=== PATIENT | male | born 1985 | race American Indian/Alaskan Native ===

== ENCOUNTER 2019-12-04 19:00 | Emergency (ER) | payer MEDICARE ==
[~2019-12-04] VITALS: Ht 177.8 cm; Wt 79.0 kg
[~2019-12-04 19:00] MED LIST: ARIP10TA15 PO; BAC15O TP; TEG100T PO; VENL25TA48 PO
[2019-12-04 19:02] VITALS: BP 113/74
[2019-12-04] MEDS ORDERED: azithromycin 250mg tablet PO ONE (19:35)
[2019-12-04] MEDS ORDERED: CefTRIAXone 250MG IM Kit w/LIDOcaine IM ONE (19:35)
[2019-12-04] MEDS ORDERED: ACYC-202 PO (19:35)
--- NOTE | 2019-12-04 20:15 | NUR ---
pt refused to treat or take anything until the dx was confirmed.
== END 2019-12-04 20:56 | disposition home or self-care (01) ==
LOC: ER 19:01
DX: Z20.2 Contact with and (suspected) exposure to infections with a predominantly sexual mode of transmission (principal); G89.29 Other chronic pain; F31.9 Bipolar disorder, unspecified; F12.90 Cannabis use, unspecified, uncomplicated; Z59.0 Homelessness; Z60.2 Problems related to living alone; Z79.899 Other long term (current) drug therapy
CPT/HCPCS: 36415; 87252; 87491; 99283

== ENCOUNTER 2019-12-15 17:36 | Emergency (ER) | payer OTHER ==
[~2019-12-15] VITALS: Ht 177.8 cm; Wt 77.7 kg
[2019-12-15] MEDS ORDERED: ONDA8TAB6 PO (18:22)
[2019-12-15] MEDS ORDERED: DOXY100C76 PO (18:22)
[2019-12-15] MEDS ORDERED: KETO15CR2 TOP (18:22)
[2019-12-15 19:03] VITALS: BP 116/74
== END 2019-12-15 19:00 | disposition home or self-care (01) ==
LOC: ER 17:37
DX: B07.9 Viral wart, unspecified (principal); L03.314 Cellulitis of groin; N49.9 Inflammatory disorder of unspecified male genital organ; G89.29 Other chronic pain; F31.9 Bipolar disorder, unspecified; F12.90 Cannabis use, unspecified, uncomplicated; Z98.890 Other specified postprocedural states; Z59.0 Homelessness; Z79.899 Other long term (current) drug therapy
CPT/HCPCS: 99283

== ENCOUNTER 2020-06-20 10:55 | Emergency (ER) | payer MEDICARE ==
[~2020-06-20] VITALS: Ht 177.8 cm; Wt 81.8 kg
[~2020-06-20 10:55] MED LIST changes: +KETO15CR2 TOP; +ONDA8TAB6 PO
[2020-06-20] MEDS ORDERED: ondansetron 4mg rapidly disintigrating tab PO ONE (11:15)
[2020-06-20] MEDS ORDERED: naloxone 2mg/2ml inj NAS STA (12:19)
[2020-06-20] MEDS ORDERED: NALO4SPR BOTHNARES (14:23)
[2020-06-20 14:44] VITALS: BP 118/77
== END 2020-06-20 14:49 | disposition home or self-care (01) ==
LOC: ER 10:55
DX: T40.2X1A Poisoning by other opioids, accidental (unintentional), initial encounter (principal); S00.12XA Contusion of left eyelid and periocular area, initial encounter; G89.29 Other chronic pain; Z59.0 Homelessness; Z79.899 Other long term (current) drug therapy; R45.1 Restlessness and agitation; Y92.89 Other specified places as the place of occurrence of the external cause
CPT/HCPCS: 71045; 93005; 99285; J2310

== ENCOUNTER 2020-09-20 18:59 | Emergency (ER) | payer MEDICARE ==
[~2020-09-20] VITALS: Ht 177.8 cm; Wt 75.0 kg
[~2020-09-20 18:59] MED LIST changes: +NALO4SPR BOTHNARES
--- NOTE | 2020-09-20 19:18 | NUR ---
pt to xray
[2020-09-20] MEDS ORDERED: NALO4SPR (20:41)
[2020-09-20 20:52] VITALS: BP 109/71
== END 2020-09-20 20:55 | disposition home or self-care (01) ==
LOC: ER 18:59
DX: T40.1X1A Poisoning by heroin, accidental (unintentional), initial encounter (principal); G89.29 Other chronic pain; F31.9 Bipolar disorder, unspecified; F12.90 Cannabis use, unspecified, uncomplicated; F15.90 Other stimulant use, unspecified, uncomplicated; F11.90 Opioid use, unspecified, uncomplicated; Z98.890 Other specified postprocedural states; Z60.2 Problems related to living alone; Z59.0 Homelessness; Z79.899 Other long term (current) drug therapy; Z79.2 Long term (current) use of antibiotics; Y92.89 Other specified places as the place of occurrence of the external cause
CPT/HCPCS: 71046; 93005; 99284

== ENCOUNTER 2021-09-02 09:54 | Emergency (ER) | payer MEDICARE ==
[~2021-09-02] VITALS: Ht 180.3 cm; Wt 81.8 kg
[~2021-09-02 09:54] MED LIST changes: +NALO4SPR
[2021-09-02 10:59] LABS: BASOPHILS % (AUTO) 0.3 % (0-1); EOSINOPHILS # (AUTO) 0.1 X10'3 (0-0.9); EOSINOPHILS % (AUTO) 0.5 % (0-6); HEMATOCRIT 38.6 % (42.0-52.0); HEMOGLOBIN 13.1 g/dl (14.0-17.9); LYMPHOCYTES # (AUTO) 1.2 X10'3 (1.1-4.8); LYMPHOCYTES % (AUTO) 9.4 % (21-51); MEAN CORPUSCULAR HEMOGLOBIN 31.9 PG (27.0-31.0); MEAN CORPUSCULAR HGB CONC 33.9 g/dL (33.0-36.5); MEAN CORPUSCULAR VOLUME 94.1 FL (78-98); MEAN PLATELET VOLUME 9.3 FL (7.4-10.4); MONOCYTES % (AUTO) 7.6 % (2-12); NEUTROPHILS # (AUTO) 10.6 X10'3 (1.8-7.7); NEUTROPHILS % (AUTO) 82.2 % (42-75); PLATELET COUNT 231 X10'3 (140-440); WHITE BLOOD COUNT 12.9 X10'3 (4.5-11.0)
[2021-09-02 11:04] LABS: ALANINE AMINOTRANSFERASE 55 U/L (12-78); ALBUMIN 3.4 G/DL (3.4-5.0); ALBUMIN/GLOBULIN RATIO 0.7 (1.1-1.5); ALKALINE PHOSPHATASE 112 IU/L (46-116); ANION GAP 8 (8-16); ASPARTATE AMINO TRANSFERASE 38 U/L (10-37); BILIRUBIN,TOTAL 0.6 MG/DL (0.1-1.0); BLOOD UREA NITROGEN 16 MG/DL (7-18); BUN/CREATININE RATIO 13.3 (5.4-32.0); CALCIUM 9.2 MG/DL (8.5-10.1); CHLORIDE 102 MMOL/L (99-107); GLUCOSE 115 MG/DL (70-104); LIPASE 56 U/L (73-393); POTASSIUM 3.9 MMOL/L (3.5-5.1); SODIUM 137 MMOL/L (135-145); TOTAL CARBON DIOXIDE 27.3 MMOL/L (24-32); TOTAL PROTEIN 8.3 G/DL (6.4-8.2); eGFR 69 ML/MIN
[2021-09-02] MEDS ORDERED: morphine 4 MG/ML inj SYRINge IV ONE (11:25)
[2021-09-02] MEDS ORDERED: normal saline 1000ML IV soln IVB ONE (11:25)
--- NOTE | 2021-09-02 11:37 | NUR ---
OUT TO CT
--- NOTE | 2021-09-02 11:43 | NUR ---
PT RETURNED TO ROOM FROM CT
[2021-09-02 11:57] LABS: CLARITY,URINE SLIGHTLY CLOUDY (Clear); COLOR,URINE YELLOW (Yellow); GLUCOSE, URINE NEGATIVE (Neg); KETONES,URINE NEGATIVE (Neg); LEUKOCYTE ESTERASE ,URINE TRACE (Neg); NITRITES, URINE NEGATIVE (Neg); OCCULT BLOOD,URINE SMALL (Neg); PROTEIN,URINE NEGATIVE (Neg); UROBILINOGEN,URINE 0.2 E.U/dL (0.2-1.0)
[2021-09-02 11:58] LABS: UA COLLECTION TYPE CLN CATCH MIDSTREAM
[2021-09-02 11:59] LABS: C-REACTIVE PROTEIN 0.58 MG/DL (0.0-0.5)
[2021-09-02] MEDS ORDERED: morphine 4 MG/ML inj SYRINge IM ONE (12:00)
[2021-09-02 12:04] LABS: MUCUS STRANDS MODERATE /LPF (Neg); SQUAMOUS EPITHELIAL CELL,UR MODERATE /LPF (FEW)
[2021-09-02 12:05] LABS: CAL OXALATE CRYSTALS 2+ /HPF (NEGATIVE)
[2021-09-02 12:06] LABS: WBC CLUMPS,URINE FEW /HPF (NEGATIVE); WBC,URINE TNTC /HPF (0-4)
[2021-09-02 12:12] LABS: BACTERIA,URINE FEW /HPF (Neg)
--- NOTE | 2021-09-02 12:18 | NUR ---
PT REFUSING MORPHINE AT THIS TIME.
--- NOTE | 2021-09-02 13:31 | NUR ---
pt resting in bed, awaiting ct results.
[2021-09-02 14:00] VITALS: BP 114/72
[2021-09-02] MEDS ORDERED: FLO0.4C PO (14:12)
[2021-09-02] MEDS ORDERED: NAPR-56 PO (14:12)
[2021-09-02] MEDS ORDERED: naproxen sodium 220mg tablet PO SCH (14:15)
== END 2021-09-02 14:30 | disposition home or self-care (01) ==
LOC: ER 09:55
DX: N23 Unspecified renal colic (principal); G89.29 Other chronic pain; F31.9 Bipolar disorder, unspecified; F12.90 Cannabis use, unspecified, uncomplicated; F15.90 Other stimulant use, unspecified, uncomplicated; F11.90 Opioid use, unspecified, uncomplicated; Z56.0 Unemployment, unspecified; Z59.00 Homelessness unspecified
CPT/HCPCS: 36415; 74176; 80053; 81001; 83690; 85025; 86140; 87088; 99285

== ENCOUNTER 2022-05-19 19:55 | Emergency (ER) | payer OTHER ==
[~2022-05-19] VITALS: Ht 177.8 cm; Wt 86.4 kg
[~2022-05-19 19:55] MED LIST changes: +NAPR-56 PO
[2022-05-19 23:00] VITALS: BP 123/91
== END 2022-05-20 00:03 | disposition home or self-care (01) ==
LOC: EEVIPCON 19:55 → ER 19:55
DX: T65.891A Toxic effect of other specified substances, accidental (unintentional), initial encounter (principal); R56.9 Unspecified convulsions; G89.29 Other chronic pain; M54.9 Dorsalgia, unspecified; F31.9 Bipolar disorder, unspecified; F12.10 Cannabis abuse, uncomplicated; F15.10 Other stimulant abuse, uncomplicated; Z59.00 Homelessness unspecified; Z79.899 Other long term (current) drug therapy; Z79.1 Long term (current) use of non-steroidal anti-inflammatories (NSAID); Z79.2 Long term (current) use of antibiotics; Y92.89 Other specified places as the place of occurrence of the external cause
CPT/HCPCS: 99283

== ENCOUNTER 2022-08-08 05:27 | Emergency (ER) | payer MEDICARE, OTHER ==
[~2022-08-08] VITALS: Ht 180.3 cm; Wt 250.0 kg
[2022-08-08 05:52] VITALS: BP 114/97
== END 2022-08-08 06:39 | disposition home or self-care (01) ==
LOC: ER 05:27
DX: F10.129 Alcohol abuse with intoxication, unspecified (principal); L53.8 Other specified erythematous conditions; Y90.9 Presence of alcohol in blood, level not specified
CPT/HCPCS: 99283

== ENCOUNTER 2023-02-11 14:29 | Emergency (ER) | payer MEDICARE, MEDICAID ==
--- NOTE | 2023-02-11 17:04 | NUR ---
tired calling the pt. phone number disconnected
== END 2023-02-11 17:06 | disposition left against medical advice (07) ==
LOC: ER 14:31
DX: Z00.8 Encounter for other general examination (principal); Z53.21 Procedure and treatment not carried out due to patient leaving prior to being seen by health care provider

== ENCOUNTER 2023-02-13 22:34 | Emergency (ER) | payer MEDICAID, MEDICARE ==
[~2023-02-13] VITALS: Ht 180.3 cm; Wt 80.2 kg
[2023-02-13 22:38] VITALS: TEMP 98.6
[2023-02-13] MEDS ORDERED: NALO4SPR BOTHNARES (22:42)
--- NOTE | 2023-02-13 22:57 | NUR ---
NEW CLOTHING, SWEATSHIRT AND SWEATPANTS PROVIDED FOR PATIENT. PATIENT WEARING APPROPRIATE FOOTWEAR.
[2023-02-13 23:00] VITALS: BP 120/84; PULSE 84; RESP 16; O2SAT 99
--- NOTE | 2023-02-13 23:07 | NUR ---
FOOD PROVIDED FOR PATIENT.
== END 2023-02-13 23:36 | disposition home or self-care (01) ==
LOC: ER 22:35
DX: T40.411A Poisoning by fentanyl or fentanyl analogs, accidental (unintentional), initial encounter (principal); Y92.89 Other specified places as the place of occurrence of the external cause
CPT/HCPCS: 99283

== ENCOUNTER 2023-03-06 16:08 | Emergency (ER) | payer MEDICAID ==
[~2023-03-06] VITALS: Ht 180.3 cm; Wt 90.0 kg
[2023-03-06 16:09] VITALS: BP 118/85; PULSE 98; RESP 14; TEMP 97.8; O2SAT 99
== END 2023-03-06 16:24 | disposition left against medical advice (07) ==
LOC: ER 16:09
DX: F11.10 Opioid abuse, uncomplicated (principal); Z53.21 Procedure and treatment not carried out due to patient leaving prior to being seen by health care provider
CPT/HCPCS: 99281

== ENCOUNTER 2023-04-29 20:04 | Emergency (ER) | payer MEDICARE, MEDICAID | END 2023-04-29 22:11 | disposition left against medical advice (07) | LOC: ER 20:04 | DX: K08.89 Other specified disorders of teeth and supporting structures (principal); Z53.21 Procedure and treatment not carried out due to patient leaving prior to being seen by health care provider ==